=== PATIENT | male | born 1990 | race Caucasian/White ===

== ENCOUNTER 2018-04-02 14:53 | Emergency (ER) | payer OTHER ==
[~2018-04-02] VITALS: Ht 180.3 cm; Wt 88.5 kg
[2018-04-02 15:11] VITALS: BP 129/76
[2018-04-02] MEDS ORDERED: LIDOCAINE INJ ONE (15:30)
[2018-04-02] MEDS ORDERED: LIDOCAINE MPF 1% - 5 mL VIAL 5 ML ONE (15:55)
[2018-04-02] MEDS ORDERED: LIDOCAINE 2% 1000 MG/50 ML VIAL INJ ONE (16:00)
[2018-04-02 17:12] VITALS: BP 119/63
== END 2018-04-02 17:12 | disposition home or self-care (01) ==
LOC: MED 14:53
DX: S91.341A Puncture wound with foreign body, right foot, initial encounter (principal); W22.8XXA Striking against or struck by other objects, initial encounter; Y93.89 Activity, other specified; Y92.89 Other specified places as the place of occurrence of the external cause; Y99.8 Other external cause status
CPT/HCPCS: 10120; 73630; 90471; 90715; 99284; J2001; Q0092; 20103

== ENCOUNTER 2019-06-14 22:20 | Emergency (ER) | payer SELFPAY ==
[~2019-06-14] VITALS: Ht 180.3 cm; Wt 96.7 kg
[2019-06-14 22:37] VITALS: BP 136/89
--- NOTE | 2019-06-14 22:53 | NUR ---
PT BIB MOTHER C/O N/V AFTER DRINKING ETOH LAST NIGHT. STATES HE VOMITED 10X TODAY ALL LIQUID. ABD SOFT, ROUND, NON TENDER. BOWEL SOUNDS PRESENT X4 QUAD. DENIES DIARRHEA. PT STATES HE TRIED TO GO TO SLEEP BUT FELT ANXIOUS. MOTHER GAVE PT ATIVAN BUT PT STATES "I GOT SCARED TAKING IT SO I SPIT IT OUT WHILE IT WAS DISSOLVING". RR EVEN, UNLABORED. SITTING IN BED, VSS. MOTHER AT BEDSIDE. MEDHX: DENIES ALLERGIES: DENIES
--- NOTE | 2019-06-14 23:02 | NUR ---
DR NICOLE AT BEDSIDE.
[2019-06-14] MEDS ORDERED: NACL 0.9% 1,000 ML IV ONE (23:10)
[2019-06-14] MEDS ORDERED: LORazepam 2 MG/ML VIAL IVP ONE (23:10)
[2019-06-14] MEDS ORDERED: ONDANSETRON 4 MG/2 ML VIAL IVP ONE (23:10)
[2019-06-14 23:25] LABS: BASOPHILS % (AUTO) 0.5 % (0.0-2.0); EOSINOPHILS # (AUTO) 0.1 K/uL (0-0.4); EOSINOPHILS % (AUTO) 1.2 % (0.0-4.0); HEMATOCRIT 47.8 % (36-52); HEMOGLOBIN 15.8 g/dL (12.0-18.0); LYMPHOCYTES # (AUTO) 1.6 K/uL (2.0-11.5); LYMPHOCYTES % (AUTO) 18.2 % (20.5-51.1); MEAN CORPUSCULAR HEMOGLOBIN 31 pg (27-31); MEAN CORPUSCULAR HGB CONC 33 g/dL (33-37); MEAN CORPUSCULAR VOLUME 93.7 fL (80-94); MONOCYTES # (AUTO) 0.8 K/uL (0.8-1.0); MONOCYTES % (AUTO) 8.7 % (1.7-9.3); NEUTROPHILS # (AUTO) 6.3 K/uL (1.8-7.7); NEUTROPHILS % (AUTO) 71.4 % (42.2-75.2); PLATELET COUNT (AUTO) 347 K/uL (140-450); RED CELL DISTRIBUTION WIDTH 14.5 % (11.6-13.7); WHITE BLOOD COUNT (AUTO) 8.8 K/uL (4.8-10.8)
[2019-06-14 23:33] LABS: ANION GAP 12.4 (8-16); CARBON DIOXIDE 29.3 mmol/L (21-32); CREATININE 0.9 mg/dL (0.7-1.3); POTASSIUM 3.7 mmol/L (3.5-5.1)
[2019-06-14 23:39] LABS: TOTAL BILIRUBIN 0.5 mg/dL (0.0-1.0)
--- NOTE | 2019-06-15 00:39 | NUR ---
Patient discharged with v/s stable. Written and verbal after care instructions given and explained. Patient alert, oriented and verbalized understanding of instructions. Ambulatory with steady gait. All questions addressed prior to discharge. ID band removed. Patient advised to follow up with PMD. Rx of XANAX, ZOFRAN given. Patient educated on indication of medication including possible reaction and side effects. Opportunity to ask questions provided and answered.
[2019-06-15 00:40] VITALS: BP 123/86
== END 2019-06-15 00:39 | disposition home or self-care (01) ==
LOC: MED 22:20
DX: F10.20 Alcohol dependence, uncomplicated (principal); R11.10 Vomiting, unspecified
CPT/HCPCS: 36415; 80053; 85025; 96361; 96374; 96375; 99283; J2060; J2405; J7030

== ENCOUNTER 2022-04-02 18:57 | Emergency (ER) | payer BC ==
[~2022-04-02] VITALS: Ht 180.3 cm; Wt 99.8 kg
[2022-04-02 19:04] VITALS: BP 160/93
--- NOTE | 2022-04-02 19:10 | NUR ---
PT AMB TO BED 12.
--- NOTE | 2022-04-02 19:45 | NUR ---
32 yo/m presents to ED w c/o of burning urination 06/02, +urinary hesitancy, dribbling, rednesss around urethra x 3 days s/p sexdual intercourse. Pt denies blood in urine, penile discharge, known stds, fevers, chills, n/v/d. pmh: denies allergies: denies
--- NOTE | 2022-04-02 19:55 | NUR ---
NAOMIE THORPE AT BEDSIDE FOR PT CARE.
[2022-04-02] MEDS ORDERED: PHENAZOPYRIDINE 100 MG TAB PO ONE (20:30)
[2022-04-02] MEDS ORDERED: cefTRIAXone 500 MG VIAL IM ONE (20:30)
[2022-04-02] MEDS ORDERED: IBUPROFEN 600 MG TAB PO ONE (20:30)
[2022-04-02] MEDS ORDERED: WATER STERILE 10 ML MC ONE (20:51)
[2022-04-02] MEDS ORDERED: VIB100 PO (20:52)
[2022-04-02] MEDS ORDERED: IBUP-2213 PO (20:52)
[2022-04-02] MEDS ORDERED: PYR100 PO (20:52)
--- NOTE | 2022-04-02 21:09 | NUR ---
PT UNABLE TO URINTE D/T PAIN W URINTION, PT RECENTLY MEDICATED FOR PAIN. WILL ATTEMPT TO URINATE SOON.
--- NOTE | 2022-04-02 22:12 | NUR ---
pt hesitant to urinte d/t previous burning urination, denies any pain at this time. will attempt o urinate soon.
--- NOTE | 2022-04-02 22:22 | NUR ---
pt was able to void w minimal discomfort.
[2022-04-02 22:26] VITALS: BP 145/89
--- NOTE | 2022-04-02 22:26 | NUR ---
Patient discharged with v/s stable. Written and verbal after care instructions given and explained. Patient alert, oriented and verbalized understanding of instructions. Ambulatory with steady gait. All questions addressed prior to discharge. ID band removed. Patient advised to follow up with PMD. Rx of ibuprofen, pyridium, doxycycline given. Patient educated on indication of medication including possible reaction and side effects. Opportunity to ask questions provided and answered.
[2022-04-02 22:49] LABS: APPEARANCE,URINE CLEAR (CLEAR); BILIRUBIN,URINE 1+ (NEGATIVE); BLOOD, URINE NEGATIVE (NEGATIVE); COLOR,URINE YELLOW (YELLOW); LEUKOCYTE ESTERASE ,URINE NEGATIVE (NEGATIVE); NITRITE, URINE NEGATIVE (NEGATIVE); UGLUCOSE NEGATIVE (NEGATIVE)
== END 2022-04-02 22:26 | disposition home or self-care (01) ==
LOC: MED 18:57
DX: R30.0 Dysuria (principal); Z20.2 Contact with and (suspected) exposure to infections with a predominantly sexual mode of transmission; Z79.899 Other long term (current) drug therapy
CPT/HCPCS: 81003; 87491; 96372; 99283; J0696